=== PATIENT | male | born 1960 | race Caucasian/White ===

== ENCOUNTER → 2021-12-24 | Day surgery (SDC) | payer BC ==
[~2021-12-24] MED LIST: ACETAMINOPHEN-1 EAC4 PO; AMLODIPINE-BEN1 EAC5 PO; BUPIVACAINE 0.25% 30ML SDV ONE; CELEBREX200 MG PO; DEXAMETHASONE SOD PHOS INJ 4 MG/ML SDV ONE; EPHEDRINE SULFATE INJ 50 MG/ML VIAL ONE; ESCITALOPRAM OX20 MG PO; FENTANYL CITRATE/PF 100MCG/2 ML INJ ONE; FIBER GUMMY PO; KETOROLAC TROMETHAMINE 30 MG/ML VIAL ONE; LIDOCAINE HCL 2% LOCAL INJ 5 ML SDV VIAL INJ ONE; METFORMIN HCL500 MG PO; MIDAZOLAM HCL 2 MG/2 ML VIAL ONE; MULTIVITAMIN200 MCG PO; MUPIROCIN 2% OINT 22 GM TUBE ONE; NEURONTIN300 MG PO; ONDANSETRON HCL INJ 2MG/ML 2ML 2 MG/ML VIAL ONE; PEPCID20 MG PO; POVIDONE IODINE 0.05% 0.05 % ML PO ONE; PROPOFOL IV EMULSION 10 MG/ML 20 ML VIAL ONE; PROPRANOLOL HCL40 MG PO; SEVOFLURANE INHAL SOLN 250 ML PEN BTL ONE
[2021-12-24 08:00] VITALS: BP 117/72
== END | disposition home or self-care (01) ==
LOC: OR 05:31
PROVIDERS: ATTEND Plastic Surgery
DX: G56.01 Carpal tunnel syndrome, right upper limb (principal); M65.841 Other synovitis and tenosynovitis, right hand; M65.311 Trigger thumb, right thumb; E11.9 Type 2 diabetes mellitus without complications; I10 Essential (primary) hypertension; E78.5 Hyperlipidemia, unspecified; E66.9 Obesity, unspecified; K21.9 Gastro-esophageal reflux disease without esophagitis; I45.10 Unspecified right bundle-branch block; F32.A Depression, unspecified; Z01.810 Encounter for preprocedural cardiovascular examination; Z79.84 Long term (current) use of oral hypoglycemic drugs; Z79.899 Other long term (current) drug therapy; Z68.31 Body mass index [BMI] 31.0-31.9, adult; Z87.891 Personal history of nicotine dependence
CPT/HCPCS: 25115; 26055; 36415; 82948; 93005; J0690; J1100; J1885; J2001; J2250; J2405; J2704; J3010